=== PATIENT | female | born 1985 | race Caucasian/White ===

== ENCOUNTER 2017-01-28 19:25 | Emergency (ER) | payer MEDICAID ==
[~2017-01-28] VITALS: Ht 172.7 cm; Wt 108.9 kg
[~2017-01-28 19:25] MED LIST: FLONASE1 SPRAYS NASAL; prenatal vitamins PO
[2017-01-28] MEDS ORDERED: Sodium Chloride 500ML 500 ML IV ONE (19:37)
[2017-01-28] MEDS ORDERED: Morphine Sulfate 4mg/ml Inj IVP ONE (19:45)
[2017-01-28 20:15] LABS: APPEARANCE,URINE CLEAR; KETONES,URINE NEGATIVE (NEGATIVE); LEUKOCYTE ESTERASE ,URINE 1+ (NEGATIVE); NITRITE,URINE NEGATIVE (NEGATIVE); PH,URINE 6 (4.5-8.0); PROTEIN,URINE NEGATIVE (NEGATIVE); UROBILINOGEN,URINE NORMAL MG/DL (0.0-1.0)
[2017-01-28 20:24] LABS: BACTERIA,URINE FEW /HPF; RBC,URINE 0-2 /HPF (0 - 2); SQUAMOUS EPITHELIAL CELL,UR FEW /LPF (NONE/OCC)
[2017-01-28 21:01] LABS: BASOPHILS % (AUTO) 0.9 % (0.0-2.0); EOSINOPHILS % (AUTO) 1.9 % (0.0-3.0); LYMPHOCYTES % (AUTO) 47.8 % (20.0-45.0); MEAN CORPUSCULAR HEMOGLOBIN 24.7 PG (27.0-31.0); MEAN CORPUSCULAR HGB CONC 31.4 G/DL (32.0-36.0); MEAN CORPUSCULAR VOLUME 79 FL (80-99); MEAN PLATELET VOLUME 7.6 FL (6.5-10.1); MONOCYTES % (AUTO) 7.3 % (1.0-10.0); NEUTROPHILS % (AUTO) 42.1 % (45.0-75.0); PLATELET COUNT 266 K/UL (150-450); RED BLOOD COUNT 4.21 M/UL (4.20-5.40); RED CELL DISTRIBUTION WIDTH 15.9 % (11.6-14.8)
[2017-01-28 21:10] LABS: ANION GAP 8 mmol/L (5-15); CALCIUM 8.5 MG/DL (8.5-10.1); CARBON DIOXIDE 25 MMOL/L (21-32); CHLORIDE 106 MMOL/L (98-107); CREATININE 0.7 MG/DL (0.55-1.30); GLOMERULAR FILTRATION RATE > 60 mL/min (>60); POTASSIUM 3.6 MMOL/L (3.5-5.1); SODIUM 139 MMOL/L (136-145)
[2017-01-28 21:14] LABS: ALANINE AMINOTRANSFERASE 28 U/L (12-78); ALBUMIN/GLOBULIN RATIO 0.9 (1.0-2.7); ASPARTATE AMINO TRANSFERASE 15 U/L (15-37); LIPASE 111 U/L (73-393); TOTAL PROTEIN 7.4 G/DL (6.4-8.2)
--- NOTE | 2017-01-28 21:42 | Emergency Room Report ---
History of Present Illness General Chief Complaint: Abdominal Pain Source: Patient (APRIL BLACKWELL Blessing.[email or web address]) Present Illness HPI 31 y/o female c/o lower abd pain x this morning. Assoc sxs include pelvic pain, nausea, and diarrhea. States that she took tylenol x 2 w/o improvement of sxs and has no other modifying factors. Denies being and denies any other contributing factors or physical complaints. Patient denies any dysuria, CP, SOB, vomiting, rashes, vag discharge, ovarian cysts, vaginal bleeding, , rectal bleeding, bodyaches or fever. ([email or web address].) Allergies: Coded Allergies: No Known Allergies (Unverified , 03/15/12) Patient History Limited by: language barrier Past Medical History: see triage record Past Surgical History: none Pertinent Family History: none Last Menstrual Period: Dec Now: No Immunizations: UTD Reviewed Nursing Documentation: PMH: Agreed, PSxH: Agreed (APRIL BLACKWELL) Nursing Documentation-PMH Past Medical History: No Stated History (APRIL BLACKWELL.Alonso) Review of Systems All Other Systems: negative except mentioned in HPI (APRIL BLACKWELL.ADione) Physical Exam Vital Signs Date Time Temp Pulse Resp B/P (MAP) Pulse Ox O2 Delivery O2 Flow Rate FiO2 01/28/17 19:26 97.3 66 18 121/76 100 Room Air Sp02 EP Interpretation: reviewed, normal General Appearance: no apparent distress, alert, GCS 15, non-toxic, other - in obvious pain Head: normocephalic, atraumatic Eyes: bilateral eye normal inspection, bilateral eye PERRL ENT: hearing grossly normal, normal pharynx, no angioedema, normal voice Neck: full range of motion, supple/symm/no masses Respiratory: chest non-tender, lungs clear, normal breath sounds, speaking full sentences Cardiovascular #1: regular rate, rhythm, no edema Gastrointestinal: soft, non-distended, no rebound, tenderness - mild supra pubic, exquesite RLQ, +McBurney tenderness Genitourinary: no CVA tenderness Musculoskeletal: digits/nails normal, gait/station normal, normal range of motion Neurologic: alert, oriented x3, responsive, motor strength/tone normal, sensory intact, speech normal Psychiatric: judgement/insight normal, memory normal, mood/affect normal, no suicidal/homicidal ideation Skin: normal color, no rash, warm/dry, well hydrated (APRIL BLACKWELL) Medical Decision Making PA Attestation Dr. Magaña is my supervising physician with whom patient management has been discussed with. (APRIL BLACKWELL) Diagnostic Impression: Primary Impression: Abdominal pain ER Course Patient presents with RLQ pain. Ordered labs which included UA, CBC, CMP and CT abd Pelvis. Preg was negative. Patient given morphine with improvement of pain. Patient was then endorsed to Dr. Magaña at the end of my shift who assumed care for the patient. (APRIL BLACKWELL) ER Course With the patient's history and examination, multiple differentials considered, including but not limited to , ectopic , ovarian torsion, gastritis, cholecystitis, pancreatitis, appendicitis test is negative Patient had CT imaging obtained which was negative at this time Patient's repeat abdominal exam is benign And on reevaluation she points to her suprapubic region bilaterally Leaking question of possible ovulation discomfort patient is in her second week of menstrual cycle Otherwise soft abdomen and stable for initial conservative outpatient trial Labs Test 01/28/17 19:35 01/28/17 20:25 Urine Color Yellow Urine Appearance Clear Urine pH 6 (4.5-8.0) Urine Specific [place] 1.020 (1.005-1.035) Urine Protein Negative (NEGATIVE) Urine Glucose (UA) Negative (NEGATIVE) Urine Ketones Negative (NEGATIVE) Urine Occult Blood Negative (NEGATIVE) Urine Nitrite Negative (NEGATIVE) Urine Bilirubin Negative (NEGATIVE) Urine Urobilinogen Normal MG/DL (0.0-1.0) Urine Leukocyte Esterase 1+ (NEGATIVE) Urine RBC 0-2 /HPF (0 - 2) Urine WBC 2-4 /HPF (0 - 2) Urine Squamous Epithelial Cells Few /LPF (NONE/OCC) Urine Bacteria Few /HPF (NONE) Urine HCG, Qualitative Negative White Blood Count 10.0 K/UL (4.8-10.8) Red Blood Count 4.21 M/UL (4.20-5.40) Hemoglobin 10.4 G/DL (12.0-16.0) Hematocrit 33.2 % (37.0-47.0) Mean Corpuscular Volume 79 FL (80-99) Mean Corpuscular Hemoglobin 24.7 PG (27.0-31.0) Mean Corpuscular Hemoglobin Concent 31.4 G/DL (32.0-36.0) Red Cell Distribution Width 15.9 % (11.6-14.8) Platelet Count 266 K/UL (150-450) Mean Platelet Volume 7.6 FL (6.5-10.1) Neutrophils (%) (Auto) 42.1 % (45.0-75.0) Lymphocytes (%) (Auto) 47.8 % (20.0-45.0) Monocytes (%) (Auto) 7.3 % (1.0-10.0) Eosinophils (%) (Auto) 1.9 % (0.0-3.0) Basophils (%) (Auto) 0.9 % (0.0-2.0) Sodium Level 139 MMOL/L (136-145) Potassium Level 3.6 MMOL/L (3.5-5.1) Chloride Level 106 MMOL/L (98-107) Carbon Dioxide Level 25 MMOL/L (21-32) Anion Gap 8 mmol/L (5-15) Blood Urea Nitrogen 15 mg/dL (7-18) Creatinine 0.7 MG/DL (0.55-1.30) Estimat Glomerular Filtration Rate > 60 mL/min (>60) Glucose Level 112 MG/DL (74-106) Calcium Level 8.5 MG/DL (8.5-10.1) Total Bilirubin 0.2 MG/DL (0.2-1.0) Aspartate Amino Transf (AST/SGOT) 15 U/L (15-37) Alanine Aminotransferase (ALT/SGPT) 28 U/L (12-78) Alkaline Phosphatase 80 U/L (46-116) Total Protein 7.4 G/DL (6.4-8.2) Albumin 3.4 G/DL (3.4-5.0) Globulin 4.0 g/dL Albumin/Globulin Ratio 0.9 (1.0-2.7) Lipase 111 U/L (73-393) Human Chorionic Gonadotropin, Quant < 1 mIU/mL (1-6) (ATUL MAGAÑA D.O.) CT/MRI/US Diagnostic Results CT/MRI/US Diagnostic Results : Impression CT abdomen pelvis: Refer to report for full specifics no obvious acute pathology (ATUL MAGAÑA D.O.) Last Vital Signs Date Time Temp Pulse Resp B/P (MAP) Pulse Ox O2 Delivery O2 Flow Rate FiO2 01/28/17 19:26 97.3 66 18 121/76 100 Room Air (APRIL BLACKWELL) Status: improved (ATUL MAGAÑA D.O.) Disposition: HOME, SELF-CARE Condition: Improved Scripts Ibuprofen* (MOTRIN*) 600 Mg Tablet 600 MG ORAL Q8H Y for For Pain, #20 TAB 0 Refills Prov: ATUL MAGAÑA D.O. 01/28/17 Referrals: NOT CHOSEN IPA/,REFERRING (PCP) Additional Instructions: Patient is provided with the discharge instructions notified to follow up with primary doctor in the next 2-3 days otherwise return to the er with any worsening symptoms. Please note that this report is being documented using DRAGON technology. This can lead to erroneous entry secondary to incorrect interpretation by the dictating instrument. APRIL BLACKWELL Jan 28, 2017 21:42 ATUL MAGAÑA D.O. Jan 29, 2017 03:45
[2017-01-28 21:59] VITALS: BP 121/84
[2017-01-28] MEDS ORDERED: IBUPROFEN600 MG ORAL (23:38)
[2017-01-28 23:45] VITALS: BP 120/83
--- NOTE | 2017-01-29 10:26 | Diagnostic Imaging Report ---
Clinical Indication: Abdominal pain Technique: No oral contrast utilized, per emergency room physician request IV administration nonionic contrast. Venous phase spiral acquisition obtained through the abdomen and pelvis. Multiplanar reconstructions were generated. Total dose length product 1132.67 mGycm. CTDIvol(s) 19.95 mGy. Dose reduction achieved using automated exposure control Comparison: none Findings: Appendix is normal. There is colonic diverticulosis. No evidence of diverticulitis. No small bowel distention. No free or loculated intraperitoneal air or fluid is evident. Distal esophagus, stomach, duodenum are unremarkable. The liver, gallbladder, bile ducts, pancreas, spleen, adrenals, right kidney are unremarkable. There is a 3 mm calculus in the left renal collecting system. No ureteral calculi. No hydronephrosis or hydroureter. No pelvic mass or adenopathy. No retroperitoneal or mesenteric mass or adenopathy. The included lung bases demonstrate posterior dependent atelectatic changes. The heart is upper limits of normal in size. The bones are unremarkable. Impression: No acute abnormality 3 mm nonobstructive left intrarenal calculus Incidental finding posterior dependent pulmonary parenchymal atelectasis The CT scanner at [facility] is accredited by the [employer] and the scans are performed using protocols designed to limit radiation exposure to as low as reasonably achievable to attain images of sufficient resolution adequate for diagnostic evaluation.
== END 2017-01-28 23:48 | disposition home or self-care (01) ==
LOC: EMR 20:02
DX: R10.30 Lower abdominal pain, unspecified (principal); R19.7 Diarrhea, unspecified; R11.0 Nausea
CPT/HCPCS: 36415; 74177; 80053; 81003; 81025; 83690; 84702; 85025; 96361; 96374; 99284; J2270; J7040; Q9967

== ENCOUNTER 2017-05-27 00:18 | Emergency (ER) | payer MEDICAID ==
[~2017-05-27] VITALS: Ht 172.7 cm; Wt 108.9 kg
[~2017-05-27 00:18] MED LIST changes: +IBUPROFEN600 MG ORAL
[2017-05-27 00:42] VITALS: BP 133/83
[2017-05-27 01:14] LABS: BASOPHILS % (AUTO) 0.8 % (0.0-2.0); EOSINOPHILS % (AUTO) 1.2 % (0.0-3.0); HEMATOCRIT 34.5 % (37.0-47.0); HEMOGLOBIN 11.1 G/DL (12.0-16.0); LYMPHOCYTES % (AUTO) 25.9 % (20.0-45.0); MEAN CORPUSCULAR VOLUME 77 FL (80-99); MONOCYTES % (AUTO) 5.9 % (1.0-10.0); NEUTROPHILS % (AUTO) 66.3 % (45.0-75.0); PLATELET COUNT 247 K/UL (150-450); RED BLOOD COUNT 4.49 M/UL (4.20-5.40); RED CELL DISTRIBUTION WIDTH 15.5 % (11.6-14.8); WHITE BLOOD COUNT 12.4 K/UL (4.8-10.8)
[2017-05-27] MEDS ORDERED: Morphine Sulfate 4mg/ml Inj IVP ONE (01:15)
--- NOTE | 2017-05-27 01:18 | Emergency Room Report ---
History of Present Illness General Chief Complaint: Abdominal Pain Source: Patient Present Illness HPI 32-year-old female with no sig pmhx p/w epigastric abd pain/right upper abdominal pain for few hours. Patient states pain started gradually, non radiating, burning in nature, intermittent. No relieving or exacerbating factors. Pt reports n/v, 4 episodes of nbnb vomiting, no diarrhea Denies fever, chills. No surgeries except for . No dysuria or hematuria No hx of endoscopies/colonoscopies. Allergies: Coded Allergies: No Known Allergies (Unverified , 03/15/12) Patient History Past Medical History: see triage record Past Surgical History: none Pertinent Family History: none Last Menstrual Period: 03/27/2017 Now: No Reviewed Nursing Documentation: PMH: Agreed; PSxH: Agreed Nursing Documentation-PMH Past Medical History: No Stated History Review of Systems All Other Systems: negative except mentioned in HPI Physical Exam Vital Signs Date Time Temp Pulse Resp B/P (MAP) Pulse Ox O2 Delivery O2 Flow Rate FiO2 05/27/17 00:20 97.8 70 19 133/83 99 Room Air 97.9 Sp02 EP Interpretation: reviewed, normal General Appearance: alert, GCS 15, non-toxic, moderate distress Head: normocephalic, atraumatic Eyes: bilateral eye normal inspection, bilateral eye PERRL, bilateral eye EOMI ENT: normal ENT inspection, normal pharynx, normal voice, moist mucus membranes Neck: normal inspection, full range of motion, supple Respiratory: normal inspection, lungs clear, normal breath sounds, no respiratory distress, no retraction, no wheezing, speaking full sentences, chest symmetrical Cardiovascular #1: normal inspection, regular rate, rhythm, no edema, normal capillary refill Cardiovascular #2: 2+ radial (R), 2+ radial (L) Gastrointestinal: other - EPIGASTRIC tenderness, no guarding no rebound, no focal right lower quadrant or left lower quadrant tenderness Musculoskeletal: normal inspection, back normal, normal range of motion, non- tender Neurologic: normal inspection, alert, oriented x3, responsive, motor strength/ tone normal, sensory intact, normal gait, speech normal Psychiatric: normal inspection, judgement/insight normal, memory normal Skin: normal inspection, normal color, no rash, warm/dry, well hydrated, normal turgor Medical Decision Making Diagnostic Impression: Primary Impression: Epigastric abdominal pain ER Course 32-year-old female with right upper/epigastric abdominal pain Differential Diagnosis: Gastritis, gastroenteritis, cholecystitis, biliary colic, UTI/pyelo . Plan: Basic labs, ua pain control, IVF ER course: Patient has remained stable during ED stay. feels much better repeat abd exam nontender all parts of abdomen labs unremarkable, no lfts elevation Disposition: Patient is to be discharged to home. Patient is instructed to follow up with their primary care doctor within 5 days. Strict return precautions discussed with patient such as fever, chills, worsening/severe abdominal pain, nausea, vomiting, black or bloody stools, which may indicate severe illness. Patient verbalizes understanding and agrees with plan. Please note that this Emergency Department Report was dictated using [employer] workforce planner technology software, occasionally this can lead to erroneous entry secondary to interpretation by the dictation equipment Last Vital Signs Date Time Temp Pulse Resp B/P (MAP) Pulse Ox O2 Delivery O2 Flow Rate FiO2 05/27/17 00:42 97.9 70 19 133/83 99 Room Air 97.9 Disposition: HOME, SELF-CARE Condition: Improved Patient Instructions: Abdominal Pain, Adult Patty Roa M.D. May 27, 2017 01:18
[2017-05-27 01:24] LABS: ANION GAP 8 mmol/L (5-15); APPEARANCE,URINE CLEAR; BILIRUBIN, URINE NEGATIVE (NEGATIVE); BLOOD UREA NITROGEN 9 mg/dL (7-18); CALCIUM 8.4 MG/DL (8.5-10.1); CARBON DIOXIDE 25 MMOL/L (21-32); CHLORIDE 104 MMOL/L (98-107); COLOR,URINE PALE YELLOW; CREATININE 0.7 MG/DL (0.55-1.30); GLUCOSE, URINE (UA) NEGATIVE (NEGATIVE); KETONES,URINE NEGATIVE (NEGATIVE); LEUKOCYTE ESTERASE ,URINE 1+ (NEGATIVE); NITRITE,URINE NEGATIVE (NEGATIVE); PH,URINE 7 (4.5-8.0); POTASSIUM 3.7 MMOL/L (3.5-5.1); PROTEIN,URINE NEGATIVE (NEGATIVE); SODIUM 137 MMOL/L (136-145); UROBILINOGEN,URINE NORMAL MG/DL (0.0-1.0)
[2017-05-27 01:28] LABS: ALANINE AMINOTRANSFERASE 26 U/L (12-78); ALBUMIN 3.6 G/DL (3.4-5.0); ALBUMIN/GLOBULIN RATIO 0.9 (1.0-2.7); ALKALINE PHOSPHATASE 81 U/L (46-116); ASPARTATE AMINO TRANSFERASE 13 U/L (15-37); BILIRUBIN,TOTAL 0.4 MG/DL (0.2-1.0)
[2017-05-27] MEDS ORDERED: PEPCID40 MG PO (02:31)
[2017-05-27 02:38] VITALS: BP 122/74
== END 2017-05-27 02:39 | disposition home or self-care (01) ==
LOC: EMR 00:37
DX: R10.13 Epigastric pain (principal)
CPT/HCPCS: 36415; 80053; 81003; 81025; 83690; 85025; 96374; 96375; 99284; J2270; J2405; S0028

== ENCOUNTER 2017-09-15 10:19 | Emergency (ER) | payer MEDICAID ==
[~2017-09-15] VITALS: Ht 182.9 cm; Wt 106.6 kg
[~2017-09-15 10:19] MED LIST changes: +PEPCID40 MG PO
[2017-09-15 11:08] LABS: APPEARANCE,URINE SLIGHTLY CLOUDY; BILIRUBIN, URINE NEGATIVE (NEGATIVE); COLOR,URINE PALE YELLOW; GLUCOSE, URINE (UA) NEGATIVE (NEGATIVE); KETONES,URINE NEGATIVE (NEGATIVE); LEUKOCYTE ESTERASE ,URINE 1+ (NEGATIVE); NITRITE,URINE NEGATIVE (NEGATIVE); PH,URINE 6 (4.5-8.0); PROTEIN,URINE 2+ (NEGATIVE); UROBILINOGEN,URINE NORMAL MG/DL (0.0-1.0)
[2017-09-15 11:40] LABS: BASOPHILS % (AUTO) 0.6 % (0.0-2.0); HEMATOCRIT 33.2 % (37.0-47.0); HEMOGLOBIN 10.2 G/DL (12.0-16.0); LYMPHOCYTES % (AUTO) 48.2 % (20.0-45.0); MEAN CORPUSCULAR VOLUME 75 FL (80-99); MONOCYTES % (AUTO) 7.4 % (1.0-10.0); NEUTROPHILS % (AUTO) 42.7 % (45.0-75.0); PLATELET COUNT 271 K/UL (150-450); RED BLOOD COUNT 4.41 M/UL (4.20-5.40); RED CELL DISTRIBUTION WIDTH 15.9 % (11.6-14.8); WHITE BLOOD COUNT 7.8 K/UL (4.8-10.8)
[2017-09-15 11:47] LABS: ANION GAP 11 mmol/L (5-15); BLOOD UREA NITROGEN 8 mg/dL (7-18); CALCIUM 7.9 MG/DL (8.5-10.1); CARBON DIOXIDE 19 MMOL/L (21-32); CHLORIDE 108 MMOL/L (98-107); CREATININE 0.6 MG/DL (0.55-1.30); POTASSIUM 3.9 MMOL/L (3.5-5.1); SODIUM 138 MMOL/L (136-145)
[2017-09-15 11:52] LABS: ALANINE AMINOTRANSFERASE 23 U/L (12-78); ALBUMIN 2.8 G/DL (3.4-5.0); ALBUMIN/GLOBULIN RATIO 0.7 (1.0-2.7); ALKALINE PHOSPHATASE 74 U/L (46-116); ASPARTATE AMINO TRANSFERASE 17 U/L (15-37); BILIRUBIN,TOTAL 0.4 MG/DL (0.2-1.0); CREATINE KINASE 134 U/L (26-308)
[2017-09-15 12:31] VITALS: BP 131/89
[2017-09-15] MEDS ORDERED: DiphenhydrAMINE 50mg/ml Inj IVP ONE (13:15)
[2017-09-15] MEDS ORDERED: Ketorolac 30mg Inj IV ONE (13:15)
--- NOTE | 2017-09-15 14:16 | Emergency Room Report ---
History of Present Illness General Chief Complaint: Headache Source: Patient Present Illness HPI This patient has multiple complaints. The patient states that she has had a headache for the past 3 days. She states that she is also had weakness in her legs for the past 3 days. She describes the weakness in her legs as "wanting to give out." He denies nausea or vomiting. She denies fever or chills. She denies recent illness. She denies neck pain. She denies chest pain or shortness of breath. She denies abdominal pain. She denies dysuria or hematuria. She denies history of headaches. She has no other complaints. Allergies: Coded Allergies: No Known Allergies (Unverified , 03/15/12) Patient History Past Medical History: none Past Surgical History: none Social History: Denies: smoking, alcohol use, drug use Last Menstrual Period: 09/03/17 Now: No : 4 Para: 4 Reviewed Nursing Documentation: PMH: Agreed; PSxH: Agreed Nursing Documentation-PMH Past Medical History: No Stated History Review of Systems All Other Systems: negative except mentioned in HPI Physical Exam Vital Signs Date Time Temp Pulse Resp B/P (MAP) Pulse Ox O2 Delivery O2 Flow Rate FiO2 09/15/17 10:26 98.3 69 18 136/76 100 Room Air 98.2 Sp02 EP Interpretation: reviewed, normal General Appearance: no apparent distress, alert, GCS 15, non-toxic Head: normocephalic, atraumatic Eyes: bilateral eye normal inspection, bilateral eye PERRL ENT: hearing grossly normal, normal pharynx, no angioedema, normal voice Neck: full range of motion, supple/symm/no masses Respiratory: chest non-tender, lungs clear, normal breath sounds, speaking full sentences Cardiovascular #1: regular rate, rhythm, no edema Gastrointestinal: normal bowel sounds, non tender, soft, non-distended, no guarding, no rebound Rectal: deferred Musculoskeletal: back normal, gait/station normal, normal range of motion, non- tender, calf tenderness Neurologic: alert, oriented x3, responsive, motor strength/tone normal, sensory intact, speech normal Psychiatric: judgement/insight normal, memory normal, mood/affect normal, no suicidal/homicidal ideation Skin: normal color, no rash, warm/dry, well hydrated Medical Decision Making Diagnostic Impression: Primary Impression: Migraine ER Course This patient is a clinical presentation consistent with migraine. The patient was treated with Compazine, Benadryl, Toradol and 1 liter of normal saline. The patient had complete resolution of the headache. There were no red flags on physical exam or history. I do not suspect meningitis, intracranial bleed, sinusitis. CT of the head was unremarkable. No emergency medical condition was identified. The patient was given return precautions and followup instructions. Laboratory Tests Test 09/15/17 10:52 09/15/17 11:09 09/15/17 11:30 Urine Color Pale yellow Urine Appearance Slightly cloudy Urine pH 6 (4.5-8.0) Urine Specific [place] 1.020 (1.005-1.035) Urine Protein 2+ (NEGATIVE) H Urine Glucose (UA) Negative (NEGATIVE) Urine Ketones Negative (NEGATIVE) Urine Occult Blood 5+ (NEGATIVE) H Urine Nitrite Negative (NEGATIVE) Urine Bilirubin Negative (NEGATIVE) Urine Urobilinogen Normal MG/DL (0.0-1.0) Urine Leukocyte Esterase 1+ (NEGATIVE) H Urine RBC Tntc /HPF (0 - 2) H Urine WBC 2-4 /HPF (0 - 2) Urine Squamous Epithelial Cells Many /LPF (NONE/OCC) H Urine Bacteria Few /HPF (NONE) Urine HCG, Qualitative Negative (NEGATIVE) Urine Opiates Screen Negative (NEGATIVE) Urine Barbiturates Screen Negative (NEGATIVE) Phencyclidine (PCP) Screen Negative (NEGATIVE) Urine Amphetamines Screen Negative (NEGATIVE) Urine Benzodiazepines Screen Negative (NEGATIVE) Urine Cocaine Screen Negative (NEGATIVE) Urine Marijuana (THC) Screen Negative (NEGATIVE) Sodium Level 138 MMOL/L (136-145) Potassium Level 3.9 MMOL/L (3.5-5.1) Chloride Level 108 MMOL/L (98-107) H Carbon Dioxide Level 19 MMOL/L (21-32) L Anion Gap 11 mmol/L (5-15) Blood Urea Nitrogen 8 mg/dL (7-18) Creatinine 0.6 MG/DL (0.55-1.30) Estimate Glomerular Filtration Rate > 60 mL/min (>60) Glucose Level 118 MG/DL (74-106) H Calcium Level 7.9 MG/DL (8.5-10.1) L Total Bilirubin 0.4 MG/DL (0.2-1.0) Aspartate Amino Transferase (AST) 17 U/L (15-37) Alanine Aminotransferase (ALT) 23 U/L (12-78) Alkaline Phosphatase 74 U/L (46-116) Total Creatine Kinase 134 U/L (26-308) Total Protein 7.0 G/DL (6.4-8.2) Albumin 2.8 G/DL (3.4-5.0) L Globulin 4.2 g/dL Albumin/Globulin Ratio 0.7 (1.0-2.7) L White Blood Count 7.8 K/UL (4.8-10.8) Red Blood Count 4.41 M/UL (4.20-5.40) Hemoglobin 10.2 G/DL (12.0-16.0) L Hematocrit 33.2 % (37.0-47.0) L Mean Corpuscular Volume 75 FL (80-99) L Mean Corpuscular Hemoglobin 23.1 PG (27.0-31.0) L Mean Corpuscular Hemoglobin Concent 30.6 G/DL (32.0-36.0) L Red Cell Distribution Width 15.9 % (11.6-14.8) H Platelet Count 271 K/UL (150-450) Mean Platelet Volume 6.9 FL (6.5-10.1) Neutrophils (%) (Auto) 42.7 % (45.0-75.0) L Lymphocytes (%) (Auto) 48.2 % (20.0-45.0) H Monocytes (%) (Auto) 7.4 % (1.0-10.0) Eosinophils (%) (Auto) 1.0 % (0.0-3.0) Basophils (%) (Auto) 0.6 % (0.0-2.0) CT/MRI/US Diagnostic Results CT/MRI/US Diagnostic Results : Imaging Test Ordered: CT head Impression No acute findings. See official report. Last Vital Signs Date Time Temp Pulse Resp B/P (MAP) Pulse Ox O2 Delivery O2 Flow Rate FiO2 09/15/17 13:11 98.2 09/15/17 12:31 68 18 131/89 100 Room Air Status: improved Disposition: HOME, SELF-CARE Condition: Improved Referrals: NOT CHOSEN IPA/MD,REFERRING (PCP) Patient Instructions: Migraine Headache Venecia Avendano DO Sep 15, 2017 14:16
--- NOTE | 2017-09-15 14:31 | Diagnostic Imaging Report ---
Indication: Headache Technique: Continuous helical CT scanning of the head was performed without intravenous contrast material. Axial and coronal 5 mm sections were generated. Radiation dose was minimized using automated exposure control Dose: Total Dose Length Product - DLP 1369.[address] Dose Index - CTDIvol(s) 70.38 mGy. Comparison: none Findings: The ventricular system is normal in size and configuration. There is no shift of midline structures. No abnormal extra-axial fluid collections are noted. There is no evidence of intracerebral bleeding. No other abnormal high or low density areas are noted within the brain. Normal molina-white differentiation. Visualized orbits and sinuses are unremarkable. The calvarium is intact. The mastoids are clear Impression: Normal CT scan of the head without contrast material. The CT scanner at [facility] is accredited by the [employer] and the scans are performed using protocols designed to limit radiation exposure to as low as reasonably achievable to attain images of sufficient resolution adequate for diagnostic evaluation.
[2017-09-15 14:35] VITALS: BP 120/72
[2017-09-15 14:52] VITALS: BP 120/72
== END 2017-09-15 14:46 | disposition home or self-care (01) ==
LOC: EMR 11:08
DX: G43.909 Migraine, unspecified, not intractable, without status migrainosus (principal)
CPT/HCPCS: 36415; 70450; 80053; 80307; 81003; 81025; 82550; 85025; 96361; 96374; 96375; 99284; J0780; J1200; J1885; J2405